=== PATIENT | male | born 1940 | race Caucasian/White ===

== ENCOUNTER → 2016-03-18 | Emergency (ER) | payer MEDICARE, MEDICAID ==
[~2016-03-18] VITALS: Ht 172.7 cm; Wt 81.0 kg
[~2016-03-18] MED LIST: ALBUTEROL 0.083% NEB SOLUTION 2.5 MG/3 ML VIAL INH ONE; SODIUM CHLORIDE 250 ML IV SCH; SODIUM CHLORIDE FLUSH 10 ML SYR IV PRN; SODIUM CHLORIDE FLUSH 3 ML SYR IV ONE
[2016-03-18 09:44] LABS: MEAN CORPUSCULAR HEMOGLOBIN 31.2 PG (26.0-34.0); MEAN CORPUSCULAR HGB CONC 33.9 g/dL (31.0-37.0); MEAN CORPUSCULAR VOLUME 92 FL (80-100); MEAN PLATELET VOLUME 9.1 FL (6.0-9.5); PLATELET COUNT 185 10^3uL (150-450); WHITE BLOOD COUNT 3.86 10^3uL (4.0-11.0)
[2016-03-18 09:54] LABS: BAND NEUTROPHILS % 1 % (0-6); EOSINOPHILS % 4 % (0-4); MONOCYTES # 0.6 #; MONOCYTES % 21 % (3-11); SEGMENTED NEUTROPHILS % 45 % (51-67); TOTAL CELLS COUNTED 100
[2016-03-18 09:55] LABS: RBC MORPH NORMAL (NORMAL)
[2016-03-18 10:00] LABS: ALBUMIN 4.1 g/dL (3.4-5.0); ALKALINE PHOSPHATASE 74 U/L (38-126); BUN/CREATININE RATIO 20 (10-20); CALCULATED IONIZED CALCIUM 3.8 mg/dL (3.8-4.6); TOTAL PROTEIN 7.2 g/dL (6.4-8.5)
--- NOTE | 2016-03-18 10:15 | NUR ---
Oxygen reduced to 1 liter per nasal cannula, Sat is 93 to 96%.
--- NOTE | 2016-03-18 10:21 | NUR ---
Dr. Dinh puts patient on room air. Sats range 89 to 91%.
[2016-03-18 10:46] VITALS: BP 143/81
--- NOTE | 2016-03-18 10:47 | NUR ---
Report called to Marisela Borges nurse at care facility. Transportation is coming.
--- NOTE | 2016-03-18 11:59 | NUR ---
This nurse called regarding transportation and nurse Antonio stated transportation should be here momentarilly.
== END | disposition home or self-care (01) ==
LOC: EDUNIT# 09:16 → ED 09:17
DX: J45.909 Unspecified asthma, uncomplicated (principal); I10 Essential (primary) hypertension; N40.0 Benign prostatic hyperplasia without lower urinary tract symptoms; C61 Malignant neoplasm of prostate; K22.70 Barrett's esophagus without dysplasia; G81.91 Hemiplegia, unspecified affecting right dominant side
CPT/HCPCS: 36415; 71020; 80053; 82803; 83605; 83880; 84484; 85025; 85379; 85610; 86140; 87486; 87581; 87633; 87798; 94640; 99284; J7050; J7613; 99281

== ENCOUNTER → 2016-06-08 | Outpatient (REF) | payer MEDICARE, MEDICAID ==
[~2016-06-08] MED LIST changes: +ACET325T38 PO; +ALBU2.5V4 INH; -ALBUTEROL 0.083% NEB SOLUTION 2.5 MG/3 ML VIAL INH ONE; +ASPI-586 PO; +ATOR40TA2 PO; +AZIT250T5 PO; +CHOL10002 PO; +FISH OIL500 M1 PO; +IMIP50TA4 PO; +LISI-596 PO; +LORA10CA PO; +LSNP10T PO; +MAGN400T26 PO; +MIRT30TA3 PO; +MULT-221 PO; +OMEP20TA PO; +ONDA4TAB11 PO; +PANT40TA3 PO; +POLY17PO2 PO; +PRESER VISION PO; +QUET400T3 PO; +RISP0.5T16 PO; -SODIUM CHLORIDE 250 ML IV SCH; -SODIUM CHLORIDE FLUSH 10 ML SYR IV PRN; -SODIUM CHLORIDE FLUSH 3 ML SYR IV ONE; +TAMS-8 PO; +TMZP15C PO; +TRAZ100T92 PO
== END ==
LOC: LAB 18:00
PROVIDERS: ATTEND Family Medicine
DX: R19.7 Diarrhea, unspecified (principal)
CPT/HCPCS: 87324; 87449